=== PATIENT | male | born 1955 | race Caucasian/White ===

== ENCOUNTER 2017-10-15 18:07 | Emergency (ER) | payer MEDICARE, MEDICAID ==
[2017-10-15 18:16] VITALS: BP 178/107
--- NOTE | 2017-10-15 19:00 | ED Physician Documentation ---
PD HPI HEENT - Stated complaint Stated Complaint: TOOTH PX - Chief complaint Chief Complaint: Heent - History obtained from History obtained from: Patient - History of Present Illness Timing - onset: Other (Left maxillary premolar is been hurting on and off for a couple weeks but severe pain today. He is seeing the dentist tomorrow. No fevers or facial swelling.) Review of Systems Constitutional: denies: Fever, Chills Nose: denies: Rhinorrhea / runny nose, Congestion Throat: denies: Sore throat PD PAST MEDICAL HISTORY - Past Medical History Past Medical History: Yes Respiratory: Asthma, Sleep apnea, CPAP use Psych: Depression - Past Surgical History Past Surgical History: Yes HEENT: Tonsil/Adenoidectomy - Present Medications Home Medications: Ambulatory Orders Medication Instructions Recorded Confirmed Albuterol Sulfate [Albuterol 0 puffs PO Q3HR PRN 04/14/14 01/25/15 Sulfate Hfa] Ibuprofen 600 mg PO TID #20 tablet 01/25/15 Clindamycin [Cleocin] 300 mg PO Q6H 10 Days capsule 10/15/17 Oxycodone HCl/Acetaminophen 1 - 2 tab PO Q4H PRN #15 tablet 10/15/17 [Percocet 5-325 mg Tablet] - Allergies Allergies/Adverse Reactions: Allergies Allergy/AdvReac Type Severity Reaction Status Date / Time No Known Drug Allergies Allergy Verified 10/15/17 18:12 - Social History Does the pt smoke?: Yes Smoking Status: Current every day smoker Does the pt drink ETOH?: Yes Does the pt have substance abuse?: Yes Substance Use and Type: Marijuana, Other - Immunizations Immunizations are current?: No Immunizations: TDAP >10years/unknown, Other immun current PD ED PE NORMAL - Vitals Vital signs reviewed: Yes - General General: Alert and oriented X 3, No acute distress, Well developed/nourished - HEENT HEENT: Other (Left maxillary premolar with a large cavity in it, actually he is generally poor dentition but that tooth itself is tender. There is no trismus or facial swelling.) - Neck Neck: Supple, no meningeal sign, No bony TTP - Neuro Neuro: Alert and oriented X 3, Normal speech Results - Vitals Vitals: Vital Signs - 24 hr 10/15/17 18:11 Temperature 36.5 C Heart Rate 87 Respiratory 22 Rate Blood Pressure 178/107 H O2 Saturation 98 Oxygen O2 Source Room air PD MEDICAL DECISION MAKING - Sepsis Event Vital Signs: Vital Signs - 24 hr 10/15/17 18:11 Temperature 36.5 C Heart Rate 87 Respiratory 22 Rate Blood Pressure 178/107 H O2 Saturation 98 Oxygen O2 Source Room air Departure - Departure Disposition: 01 Home, Self Care Clinical Impression: Dental abscess Condition: Good Record reviewed to determine appropriate education?: Yes Instructions: ED Abscess Dental Prescriptions: Clindamycin [Cleocin] 300 mg PO Q6H 10 Days capsule Oxycodone HCl/Acetaminophen [Percocet 5-325 mg Tablet] 1 - 2 tab PO Q4H PRN #15 tablet PRN Reason: Pain Comments: It is very important that you follow-up with a dentist. When it comes to dental problems like yours, the emergency department can only offer a short- term solution to your long-term problem. A couple of low cost options for dental care include: [facility] in [place], calls [phone] for an appointment Or [facility] in [place], call [phone] for an appointment.. Do not drink or drive while taking narcotic pain medication. Note that many narcotic pain relievers also contain Tylenol/acetaminophen. Please ensure that your total dose of acetaminophen from all sources does not exceed 3 g (3000 mg) per day. You may get constipated while on this medication. Take a stool softener such as Colace twice a day while you are on it. Also add an [id number]-rhd-sbfnuij laxative such as senna or MiraLAX on any day that you do not have a bowel movement. If you received a narcotic pain medication or sedative while in the emergency department, do not drive for the next 24 hours. Your blood pressure was elevated today on check into the emergency department. This does not mean that you have hypertension, it is a common phenomenon to come to the emergency department and have elevated blood pressure. I recommend that you see your primary care physician within the week to have it rechecked when you are feeling better.
== END 2017-10-15 19:03 | disposition home or self-care (01) ==
LOC: ED 18:07
DX: K04.7 Periapical abscess without sinus (principal); F17.200 Nicotine dependence, unspecified, uncomplicated
CPT/HCPCS: 99283

== ENCOUNTER 2022-01-26 08:26 | Outpatient (CLI) | payer MEDICARE, MEDICAID ==
[2022-01-26 09:21] VITALS: BP 160/90
--- NOTE | 2022-01-26 09:21 | SLEEP CARE CONSULTATION ---
Information from patient questionnaire entered by Arabella Ozuna MA. I have reviewed and concur with the information entered by Arabella Ozuna MA. This document represents the service I personally performed and the decisions made by me, Ricarda Erwin ARNP. History of Present Illness Service Date and Time: 01/26/2022825 Reason for Visit: New patient, Previously diagnosed sleep apnea, sleep apnea on CPAP therapy Chief Complaint: reports: Insomnia, Unrefreshed sleep, Snoring, Excessive daytime sleepiness, Observed pauses in breathing, Fatigue, Frequent awakenings at night, Other (CPAP broken) Date of Onset: 15 YEARS AGO Usual bedtime: N/A Time it takes to fall asleep: VARIES Snores at night: Yes Observed to quit breathing while asleep: No Number of times waking at night: 15-20 Reasons for waking at night: reports: Bathroom, Other (unknown reason). denies: Choking, Gasping for air Toss, Turn, or Twitch while sleeping: Yes Recalls having dreams: No Usually gets out of bed at: varies Feels refreshed in the morning: No Morning headache: No Sleepy or fatigued during the day: Yes Ever fallen asleep while driving: Yes (no accidents) Takes day naps: Yes (varies) Dreams during day naps: No Prior sleep studies: Yes Year and Where: [facility] Additional HPI information: KAHLIL MAN was previously diagnosed to have unknown, AHI unknown, sleep apnea-hypopnea syndrome and comes in today to establish care for CPAP therapy. Patient states he has very severe sleep apnea. He states he cannot obtain a copy of his sleep study and that it may be over 10 years old. He is using a CPAP that he obtained online that may not be set at an adequate pressure for him and he is waking up frequently at night and somewhat refreshed but not able to function during day due to sleepiness. He would like to get set up with a new device. - Parasomnia Symptoms Ever been unable to move upon waking from sleep: No Walks in sleep: No Talks in sleep: No Ever acted out dreams in sleep: No Ever felt weak in the knees when startled or emotional: No Bothered by creepy, crawly, restless sensations in legs: No Problems with memory or concentration: Yes (both) CPAP Compliance Data Compliance data discussion: Patient has an old Tanvi machine that he obtained on the internet from a private sell. He states it is "cranked all the way up". He tries to use the mach ine every night but only sleeps about 1-2 hours at a time through the night. His other machine is broken and has not worked for a couple years. He gets his supplies online at his own cost. He is using a full face mask. Subjective Patient concerns: denies: aerophagia, mask discomfort, air blowing in eyes, mask leak noise, condensation in mask/hose, nasal congestion, dry mouth, nose, throat, epistaxis Observed to snore while using device: No Current pressure setting perceived as: too low On therapy, patient: reports: sleeping better, awakening more refreshed, other (cannot sleep without his CPAP). denies: drowsiness while driving Initial [place] Sleepiness Scale score: 18 (01/2022) Past Medical History Past Medical History: reports: Hypertension, Claustrophobia, Anxiety, Asthma, Depression, Attention deficit Social History The patient's occupation is a RE. Patient is and lives in . Have you smoked in the past 12 months: Yes Cigarettes per day (20/pack): 20 Years of smokin Smoking Pack Years: 55.0 Alcohol use: Yes Alcohol amount and frequency: 1-3 couple times a month Caffeine use: Yes Caffeine amount and frequency: 1-2 drinks rarely Family History Family history of sleep disordered breathing: Yes Family Hx Sleep Apnea: Grandparent: Snoring, Sleep apnea - Untreated Allergies and Home Medications Drug allergies reviewed: Yes (NKDA) Home medication list reviewed: Yes Allergy and home medication list: Allergies No Known Drug Allergies Allergy (Verified 10/15/17 18:12) Medications: Albuterol inhaler Breo inhaler BP med, not currently taking Review of Systems Weight loss over past 5 years: 13 Cardiovascular: reports: high blood pressure, leg or foot swelling, have to sleep sitting up Respiratory: reports: shortness of breath, wheeze, sputum production, chronic cough Urinary: reports: incontinence, frequency, urgency Psychiatric: reports: anxiety Ear/Nose/Throat: reports: nasal congestion, sinus problems, dry mouth/throat, hoarseness, tonsillectomy, wisdom teeth removed Endocrine: reports: sluggishness, excessive thirst, increased urination Immunologic: reports: sneezing, allergies to food or environment (hayfever) Physical Exam Vital signs obtained and entered by: ROVERTO GAO Blood Pressure: 160/90 (LEFT ARM) Cuff size: regular Heart Rate: 90 O2 Saturation: 95 Height: 5 ft 9 in Weight: 300 lb 6.4 oz Body Mass Index: 44.3 BMI Classification: Morbidly Obese Neck circumference: 19 Heart: regular rate and rhythm Lungs: wheeze Impression and Plan 1. Obstructive Sleep Apnea-Hypopnea Syndrome, unknown, with unknown treatment compliance and unknown apnea control. When he is on adequate CPAP therapy, the patient has better sleep quality and is more rested overall. Patient has suboptimal treatment of his sleep apnea with a CPAP that is set at unknown pressures. He last had a sleep study over 10 years ago that he states showed very severe sleep apnea. I will have him repeat a sleep study to verify his diagnosis and severity. We can then get him set up on a new device at appr opriate pressures to control his apnea. * Continue CPAP pressure at [unknown] cmH2O * PSG/HST to verify diagnosis and severity * Notify me if snoring with mask or feeling that the pressure is too much or too little * Attempt to lose weight * Call this office if any problems using CPAP * Return for follow up after sleep study, or sooner if concerns arise Counseling Topics: Weight loss health impact Visit Type: In Office Time Spent with Patient (minutes): 32 Provider Statement: I spent 100% of the Face to Face Visit with the patient with greater than 50% spent counseling the patient and coordination of care.
== END 2022-01-26 08:27 | disposition home or self-care (01) ==
LOC: SC 08:26
PROVIDERS: ATTEND Nurse Practitioner Family
DX: G47.33 Obstructive sleep apnea (adult) (pediatric) (principal); E66.01 Morbid (severe) obesity due to excess calories; Z68.41 Body mass index [BMI] 40.0-44.9, adult; F17.210 Nicotine dependence, cigarettes, uncomplicated
CPT/HCPCS: 99203; G0463; 99212

== ENCOUNTER 2022-02-12 19:28 | Outpatient (CLI) | payer MEDICARE, MEDICAID | END 2022-02-12 19:29 | disposition home or self-care (01) | LOC: SC 19:28 | PROVIDERS: ATTEND Nurse Practitioner Family | DX: G47.33 Obstructive sleep apnea (adult) (pediatric) (principal) | CPT/HCPCS: 95810 ==

== ENCOUNTER 2022-02-20 12:30 | Outpatient (CLI) | payer MEDICARE, MEDICAID ==
[2022-02-20 13:13] VITALS: BP 128/78
--- NOTE | 2022-02-20 13:13 | SLEEP CARE CONSULTATION ---
Information from patient questionnaire entered by Flavia Plummer. I have reviewed and concur with the information entered by Flavia Plummer. This document represents the service I personally performed and the decisions made by me, Thomas Loving MD, [facility]. History of Present Illness Service Date and Time: 02/20/2022 1230 Initial [place] Sleepiness Scale score: 18 Current [place] Sleepiness Scale score: 16 (02/20/2022) Additional HPI information: Mr. Beatty returned for follow up of the sleep study he had on 05-15-21. The polysomnography showed that the patient had reduced sleep efficiency due to frequent awakenings throughout the night. The sleep architecture was abnormal for sleep fragmentation and lack of REM and slow wave sleep (N3). Respiratory monitoring showed extremely severe obstructive sleep apnea-hypopnea (AHI = 129.4 ) associated with frequent arousals, oxyhemoglobin desaturation and mild hypoxia (danette oxygen saturation of 80%). The respiratory events occurred independently of sleep stage and body position (supine AHI = 132.0; non-supine = 129.94). Snore was moderate in intensity. There was no significant periodic leg movement of sleep. Cardiac rhythm was normal sinus rhythm without significant arrhythmia. No abnormal behavior (parasomnia) observed during the night. The patient was informed of these findings. I explained to him the patho physiology behind obstructive sleep apnea. We then spent quite a bit of time discussing different treatment options. For mild obstructive sleep apnea, surgery and oral appliance are alternatives to nasal CPAP therapy but in moderate or severe cases, nasal CPAP is the most effective and reliable treatment. Weight loss in an obese individual is strongly recommended. After some discussion, he opted to restart using a CPAP again. The patient said he bought a CPAP out of pocket about 10 years ago and used it until it quit recently. He used a full face mask. He was originally diagnosed in [facility] decades ago. Sleep Study - Results Type of Sleep Study: Polysomnography (COMPLETED 02-12-22) Prior sleep studies: Yes Year and Where: [facility] Allergies and Home Medications Drug allergies reviewed: Yes Home medication list reviewed: Yes Allergy and home medication list: Allergies No Known Drug Allergies Allergy (Verified 10/15/17 18:12) Review of Systems Review of systems same as previous: Yes Physical Exam Vital signs obtained and entered by: FLAVIA Hernandez MA Blood Pressure: 128/78 (left arm ) Cuff size: long Heart Rate: 93 O2 Saturation: 94 Height: 5 ft 9 in Weight: 305 lb Body Mass Index: 45.0 BMI Classification: Morbidly Obese Impression and Plan IMPRESSION: 1. Obstructive Sleep Apnea-Hypopnea Syndrome, extremely severe, associated with moderate hypoxemia and sleep fragmentation. Obviously this is the cause of the patients symptoms of unrefreshed sleep, and excessive daytime sleepiness. As mentioned above, the patient will be started on an autoCPAP set between 10 and 20 cmH2O. Depending on his response and compliance he may be brought back for an overnight CPAP titration study. PLAN: 1. Prescription made for an autoCPAP, heated humidifier, and related supplies through [facility]. 2. Attempt to lose weight and avoid alcohol consumption near bedtime. 3. The patient is again cautioned about driving until his sleepiness compl etely resolves on the CPAP therapy. 4. Return for follow up after one month of using the CPAP. Prescriptions: Auto CPAP Follow up with Sleep Care in: 1-2 months Follow up recommended for: Weight management Visit Type: In Office Time Spent with Patient (minutes): 15 Provider Statement: I spent 100% of the Face to Face Visit with the patient with greater than 50% spent counseling the patient and coordination of care.
== END 2022-02-20 12:31 | disposition home or self-care (01) ==
LOC: SC 12:30
PROVIDERS: ATTEND Internal Medicine Pulmonary Disease
DX: G47.33 Obstructive sleep apnea (adult) (pediatric) (principal); E66.01 Morbid (severe) obesity due to excess calories; Z68.42 Body mass index [BMI] 45.0-49.9, adult
CPT/HCPCS: 99212; G0463